=== PATIENT | female | born 1975 | race Two or more races ===

== ENCOUNTER → 2025-02-26 | Outpatient (CLI) | payer MEDICAID, SELFPAY ==
--- NOTE | 2025-02-26 12:00 | XR_ITS ---
Examination: MRI pelvis, without contrast Date and time of exam: February 26, T2 thousand 25 1217 hours INDICATIONS: Outside pelvic sonogram enlarged abnormal uterus, irregular heavy bleeding beginning July 2024 Technique: Multiple axial sagittal and coronal images of the pelvis have been obtained with the Siemens high-resolution 1.5 Mei MRI scanner. Images obtained include T2-weighted fat-suppressed sagittal sections, TR 3500, TE 46, T2 weighted coronal fat suppressed images, TR 3050, TE 84, T2-weighted transverse fat suppressed images, TR 3260, TE 63, proton density transverse images, TR 4720 TE 46, and T1 weighted coronal images, TR 560, TE 13. Findings: Anteverted uterus, 9.2 x 5.4 x 5.2 cm Endometrial stripe 8mm No discrete uterine mass Small benign cervical cysts 30 mm right ovarian cyst No free fluid in the pelvis No solid pelvic mass No pelvic lymphadenopathy IMPRESSION: No discrete uterine mass Endometrial stripe is thickened 8 mm at the patient is postmenopausal Recommend transvaginal pelvic sonography follow-up 30 mm simple right ovarian cyst
== END | disposition home or self-care (01) ==
LOC: SMRI 03-04 07:40
PROVIDERS: PCP Family Medicine; Referring Provider Family Medicine; Visit Provider Family Medicine
DX: N95.8 Other specified menopausal and perimenopausal disorders (principal); N83.291 Other ovarian cyst, right side
CPT/HCPCS: 72195